=== PATIENT | female | born 1935 | race Hispanic/Latino ===

== ENCOUNTER 2018-01-08 11:07 | Emergency (ER) | payer MEDICARE, MEDICAID ==
[2018-01-08 11:07] VITALS: BMI 27.9
[2018-01-08] MEDS ORDERED: Sodium Chloride 0.9% 1,000 ML IV ONE (11:15)
[2018-01-08 11:51] LABS: BASO # 0.1 K/uL (0.0-0.2); BASO % 1.3 % (0.0-2.0); EOS # 0.2 K/uL (0.0-0.7); EOS % 3.1 % (0.0-4.0); HEMOGLOBIN 14.6 g/dL (12.0-16.0); LYMPH # 1.5 K/uL (1.0-4.3); LYMPH % 23.5 % (20.0-40.0); MEAN CELL VOLUME 96.6 fl (81.0-99.0); MEAN CORPUSCULAR HEMOGLOBIN 32.5 pg (27.0-31.0); MEAN CORPUSCULAR HGB CONC 33.6 g/dL (33.0-37.0); MEAN PLATELET VOLUME 8.1 fl (7.2-11.7); MONO # 0.8 K/uL (0.0-0.8); MONO % 13.2 % (0.0-10.0); NEUT # 3.6 K/uL (1.8-7.0); NEUT % 58.9 % (50.0-75.0); RBC 4.5 Mil/uL (3.80-5.20); RED CELL DISTRIBUTION WIDTH 16.2 % (11.5-14.5); WHITE BLOOD COUNT 6.2 K/uL (4.8-10.8)
[2018-01-08 12:01] LABS: INR 1.2; PROTHROMBIN TIME 13.8 Seconds (9.8-13.1)
[2018-01-08 12:04] LABS: PARTIAL THROMBOPLASTIN TIME 35.4 Seconds (25.6-37.1)
--- NOTE | 2018-01-08 12:09 | CT ---
Date of service: 01/08/2018 PROCEDURE: CT HEAD WITHOUT CONTRAST. HISTORY: R facial droop COMPARISON: None available. TECHNIQUE: Axial computed tomography images were obtained through the head/brain without intravenous contrast. Radiation dose: Total exam DLP = 827.94 mGy-cm. This CT exam was performed using one or more of the following dose reduction techniques: Automated exposure control, adjustment of the mA and/or kV according to patient size, and/or use of iterative reconstruction technique. FINDINGS: HEMORRHAGE: No intracranial hemorrhage. BRAIN: No mass effect or edema. Mild diffuse age-appropriate atrophy. Moderate patchy and confluent periventricular and deep white matter lucency consistent with microvascular ischemic change. No evidence of acute infarct. VENTRICLES: Unremarkable. No hydrocephalus. CALVARIUM: Unremarkable. PARANASAL SINUSES: Unremarkable as visualized. No significant inflammatory changes. MASTOID AIR CELLS: Unremarkable as visualized. No inflammatory changes. OTHER FINDINGS: None. IMPRESSION: No intracranial mass, hemorrhage or evidence of acute infarct. Age-appropriate involutional changes.
[2018-01-08 12:17] LABS: ALB/GLOB RATIO 1.1 (1.0-2.1); ALBUMIN 3.9 g/dL (3.5-5.0); ALT/SGPT 64 U/L (9-52); AST/SGOT 59 U/L (14-36); BLOOD UREA NITROGEN 14 mg/dl (7-17); CALCIUM 9.2 mg/dL (8.4-10.2); GFR NON-AFRICAN AMERICAN 53; HDL CHOLESTEROL 71 MG/DL (30-70)
[2018-01-08 12:29] LABS: LDL CHOLESTEROL 61 mg/dL (0-129)
--- NOTE | 2018-01-08 13:32 | RAD ---
Date of service: 01/08/2018 HISTORY: Code Stroke COMPARISON: No prior. FINDINGS: LUNGS: No active pulmonary disease. PLEURA: No significant pleural effusion identified, no pneumothorax apparent. CARDIOVASCULAR: Cardiomegaly. No evidence of acute, significant cardiovascular disease. OSSEOUS STRUCTURES: No significant abnormalities. VISUALIZED UPPER ABDOMEN: Normal. OTHER FINDINGS: None. IMPRESSION: No active disease.
[2018-01-08] MEDS ORDERED: Gadodiamide 287 MG/ML VIAL (15ML) IV ONE (13:41)
--- NOTE | 2018-01-08 13:41 | CARD ---
APPROVED REPORT Date of service: 01/08/2018 EKG Measurement Heart [id number] <Conclusion> Normal sinus rhythm Normal ECG
--- NOTE | 2018-01-08 15:08 | MRI ---
Date of service: 01/08/2018 PROCEDURE: MRI BRAIN WITH AND WITHOUT CONTRAST HISTORY: R facial palsy hx malignancy COMPARISON: Noncontrast head CT 01/08/2018. TECHNIQUE: Multiplanar, multisequence MR images of the brain were obtained with and without intravenous contrast enhancement. FINDINGS: HEMORRHAGE: None DWI: No evidence of an acute or early subacute infarction. BRAIN PARENCHYMA: There is a small linear flow void identified at the right cerebellar hemisphere inferiorly with the caput medusa component seen medially. 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 This is an occult AVM requiring no treatment. No suspicious signal changes are seen local to it that suggests current or prior ischemia. This is not usually seen associated with a DVA. Otherwise, limited chronic microangiopathy is appreciated in the periventricular white matter predominantly but also the subcortical left frontal and parietal lobes more so than at the right. Minimal similar changes may be present the inferior leanne but appear to spare the cerebellum. Diffuse cerebral atrophy appears mild once again. There is no mass effect. There is a near empty sella. ENHANCEMENT: DVA as discussed above. No additional abnormal intracranial enhancement. VENTRICLES: Unremarkable. No hydrocephalus. CRANIUM: Unremarkable. ORBITS: Grossly unremarkable. PARANASAL SINUSES/MASTOIDS: Clear VASCULAR SYSTEM: Skull base flow voids intact. OTHER FINDINGS: None . IMPRESSION: Mild age related neuro degenerative changes are identified which appear age-appropriate. No intracranial enhancing mass identified. 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 No acute intracranial findings.
--- NOTE | 2018-01-08 16:09 | RAD ---
Date of service: 01/08/2018 HISTORY: ro FB L chest for MRI all leads off COMPARISON: 01/08/2018 at 11:39 a.m. FINDINGS: LUNGS: No infiltrate. PLEURA: No significant pleural effusion identified, no pneumothorax apparent. CARDIOVASCULAR: Normal heart size. No congestive change. Right subclavian central venous catheter unchanged. OSSEOUS STRUCTURES: No significant abnormalities. VISUALIZED UPPER ABDOMEN: Normal. OTHER FINDINGS: None. IMPRESSION: No active disease.
--- NOTE | 2018-01-08 17:53 | ED PDOC ---
HPI:STROKE - Time Time: 11:13 - Historian Historian: Patient - Chief Complaint Chief Complaint: Facial droop - Onset Date: 01/07/18 Time: 12:00 - Timing Timing: Currently Symptomatic - Location Locate right:: Face - Severity of pain Maximum severity:: None Severity Current: None - TPA Positive for Contraindication: Yes Reason tPA is not being Administered: symptoms ongoing >4 hours and likely bells palsy - Notes: Notes:: 82yo female arrives w EMS per report her [employer] called 911 when she noticed facial droop. Patient c/o eye irritation and difficulty closing R eye but denies pain, numbness, change in speech, or vision, extremity weakness or numbness or headache. Reports history of several malignancies for which ?spread to brain in past (poor historian). Denies falls or trauma. NIHSS Stroke Scale - Date/Time Evaluation Performed Date Performed: 01/08/18 Time Performed: 11:20 When Was NIHSS Performed: Baseline - How Severe is the Stroke Level of Consciousness: 0=Alert LOC to Questions: 0=Both comments correct LOC to commands: 0=Obeys both correctly Best Gaze: 0=Normal Visual: 0=No visual loss Facial: 3=Complete unilateral paralysis Motor Arm - Left: 0=No drift Motor Arm - Right: 0=No drift Motor Leg - Left: 0=No drift Motor Leg - Right: 0=No drift Limb Ataxia: 0=Absent Sensory: 0=Normal Best Language: 0=No aphasia Dysarthia: 1=Mild to moderate slurring Extinction & Inattention (Neglect): 0=Normal, no object Score: 4 rTPA Inclusion/Exclusion - Refusal of Treatment Patient Refused Treatment: No - Inclusion Criteria for Altepase Patient is 18 years or Older: No The Clinical Diagnosis of Ischemic Stroke That is Causing a Potentially Disabling Neurological Deficit: No Time of Onset is Well Established to be Less Than 270 Minute Before Treatment Would Begin: No Risk/Benefit Discussed With Patient/Family Member Present: Yes - Exclusion Criteria for Altepase Uncontrolled Hypertension at Time of Treatment (Systolic BP above 185 or Diastolic BP above 110 mmHg): No - Warning to TPA With Conditions Following Conditions Weighed Against Anticipated Benefit: No Past Medical History Reviewed: Historical Data, Nursing Documentation, Vital Signs Vital Signs: Last Vital Signs Temp 98.6 F 01/08/18 16:59 Pulse 85 01/08/18 16:59 Resp 17 01/08/18 16:59 BP 157/84 H 01/08/18 16:59 Pulse Ox 98 01/08/18 16:59 - Medical History PMH: Anxiety, Arthritis (KNEE), Bipolar Disorder, Colonic Polyps, Diverticulitis, Gastritis, HTN, Hyperlipidemia, Malignancy (Colon, Breast (Right )), Osteoporosis Denies: Chronic Kidney Disease - Surgical History Surgical History: Cholecystectomy - Family History Family History: States: Unknown Family Hx - Immunization History Hx Tetanus Toxoid Vaccination: No Hx Influenza Vaccination: No Hx Pneumococcal Vaccination: No - Home Medications Home Medications: Ambulatory Orders Medication Instructions Recorded ALPRAZolam [Xanax] 1 mg PO Q8 PRN 01/08/18 Albuterol Sulfate [Ventolin Hfa] 2 puff IH Q6 PRN 01/08/18 Ferrous Sulfate [Feosol] 325 mg PO DAILY 01/08/18 Furosemide [Lasix] 20 mg PO DAILY 01/08/18 Latanoprost [Xalatan] 1 drop EACHEYE HS 01/08/18 Megestrol Acetate [Megace] 10 ml PO DAILY 01/08/18 Metoprolol Tartrate [Lopressor] 25 mg PO Q12 01/08/18 Pantoprazole Sodium [Protonix] 40 mg PO DAILY 01/08/18 Prednisone 50 mg PO DAILY #6 tab 01/08/18 valACYclovir [Valtrex] 500 mg PO BID #20 tab 01/08/18 - Allergies Allergies/Adverse Reactions: Allergies Allergy/AdvReac Type Severity Reaction Status Date / Time codeine Allergy REDNESS Verified 01/08/18 11:09 iodine Allergy SWELLING Verified 01/08/18 11:09 iohexol Allergy SWELLING Verified 01/08/18 11:09 NSAIDS (Non-Steroidal Allergy RASH Verified 01/08/18 11:09 Anti-Inflamma Sulfa (Sulfonamide Allergy RASH Verified 01/08/18 11:09 Antibiotics) Review of Systems ROS Statement: Except As Marked, All Systems Reviewed And Found Negative Constitutional: Negative for: Fever ENT: Negative for: Nose Discharge Cardiovascular: Negative for: Chest Pain Respiratory: Negative for: Cough Gastrointestinal: Negative for: Nausea Genitourinary Female: Negative for: Dysuria Skin: Negative for: Rash, Lesions Neurological: Positive for: Other (facial droop). Negative for: Weakness, Numbness - Laboratory Results Result Diagrams: 01/08/18 11:40 01/08/18 11:40 - ECG O2 Sat by Pulse Oximetry: 98 Medical Decision Making Medical Decision Making: labs, CT report and MRI brain report reviewed. Family told of vascular anomoly but given age and likely chronic, monitor outpatient per neurology. discussed results w neuro Dr Gurjit duong for discharge w prednisone and valtrex discussed results w son Sukhwinder in area and daughter estela in [place] importance of wetting eye and eye patch again discussed along w followup Discussed w son in ED and daughter on phone in [place], stressed importance of compliance w eye rewetting drops and patch use at night, along w medication compliance. Patient wants to go home. Ambulance service requested home for assistance as lives 4 floor walkup. Son states will check on her daily. Disposition - Clinical Impression Clinical Impression: Eller's palsy - Patient ED Disposition Is Patient to be Admitted: No Counseled Patient/Family Regarding: Studies Performed, Diagnosis, Need For Followup, Rx Given - Disposition Referrals: Natalie Aguayo MD [Medical Doctor] - Disposition: Routine/Home Disposition Time: 19:00 (awaiting ride home ambulance) Condition: STABLE Additional Instructions: WEAR EYE PATCH WHEN SLEEPING. USE EYE REWETTING DROPS 5X DAILY. RETURN TO ER FOR ANY CHANGE IN VISION. FAILURE TO WEAR EYE PATCH COULD RESULT IN DRYING OF THE EYE AND VISUAL LOSS. TAKE VALTREX AND PREDNISONE DIRECTED. FOLLOWUP WITH PMD AND NEUROLOGY DIRECTED. Prescriptions: Prednisone 50 mg PO DAILY #6 tab valACYclovir [Valtrex] 500 mg PO BID #20 tab Instructions: Eller's Palsy (DC) Forms: [employer] ([employer])
[2018-01-09 00:49] VITALS: BP 168/90; PULSE 88; RESP 18; TEMP 98.7; O2SAT 98
== END 2018-01-09 01:10 | disposition home or self-care (01) ==
LOC: H.ER 11:07
DX: G51.0 Bell's palsy (principal); Z86.59 Personal history of other mental and behavioral disorders; I10 Essential (primary) hypertension; E78.5 Hyperlipidemia, unspecified; Z85.038 Personal history of other malignant neoplasm of large intestine; Z79.899 Other long term (current) drug therapy; Z85.3 Personal history of malignant neoplasm of breast; M81.0 Age-related osteoporosis without current pathological fracture
CPT/HCPCS: 70450; 70553; 71045; 80053; 80061; 83036; 84484; 85025; 85610; 85730; 86850; 86900; 92526; 92610; 93005; 99285; A9579; G8996; G8997; J7030

== ENCOUNTER 2018-08-12 10:42 | Inpatient (IN) | payer MEDICARE, MEDICAID ==
[2018-08-12 10:42] VITALS: BMI 27.9
[2018-08-12 11:51] LABS: BASO % 1.4 % (0.0-2.0); EOS # 0.1 K/uL (0.0-0.7); HEMOGLOBIN 14.2 g/dL (12.0-16.0); LYMPH # 0.8 K/uL (1.0-4.3); LYMPH % 28.7 % (20.0-40.0); MEAN CELL VOLUME 97.3 fl (81.0-99.0); MEAN CORPUSCULAR HEMOGLOBIN 33.1 pg (27.0-31.0); MEAN PLATELET VOLUME 8.8 fl (7.2-11.7); MONO # 0.5 K/uL (0.0-0.8); NEUT # 1.3 K/uL (1.8-7.0); NEUT % 48.9 % (50.0-75.0); NRBC % 0.3 % (0.0-0.0); PLATELET COUNT 86 K/uL (130-400); RBC 4.31 Mil/uL (3.80-5.20); RED CELL DISTRIBUTION WIDTH 14.5 % (11.5-14.5); WHITE BLOOD COUNT 2.7 K/uL (4.8-10.8)
[2018-08-12 12:00] LABS: ALB/GLOB RATIO 1.2 (1.0-2.1); ALT/SGPT 57 U/L (9-52); AST/SGOT 71 U/L (14-36); BLOOD UREA NITROGEN 12 mg/dl (7-17); CALCIUM 8.8 mg/dL (8.4-10.2); GFR NON-AFRICAN AMERICAN > 60; INR 1.3; PROTHROMBIN TIME 14.6 Seconds (9.8-13.1)
[2018-08-12 12:03] LABS: PARTIAL THROMBOPLASTIN TIME 40.1 Seconds (25.6-37.1)
[2018-08-12 12:12] LABS: B-TYPE NATRIURETIC PEPTIDE 290 pg/ml (0-900)
[2018-08-12 12:39] LABS: BANDS 2 % (0-2); BASOPHIL 1 % (0-2); EOSINOPHIL 3 % (0-7); LYMPHOCYTE 21 % (20-50); MONOCYTE 15 % (0-10); NEUTROPHIL 57 % (42-75); REACTIVE LYMPHOCYTES 1 % (0-0); TOTAL CELLS COUNTED 100
[2018-08-12 12:41] LABS: PLATELET ESTIMATE DECREASED (NORMAL)
[2018-08-12 12:42] LABS: ANISOCYTOSIS SLIGHT
[2018-08-12 12:44] LABS: LARGE PLATELETS PRESENT; OVALOCYTES SLIGHT; POIKILOCYTOSIS SLIGHT
--- NOTE | 2018-08-12 12:48 | ED PDOC ---
HPI: General Adult Time Seen by Provider: 08/12/18 10:55 Chief Complaint (Nursing): Palpitations Chief Complaint (Provider): abd pain, palpitations History Per: Patient, EMS History/Exam Limitations: physical impairment Onset/Duration Of Symptoms: Gradual Current Symptoms Are (Timing): Still Present Additional Complaint(s): 83yo female arrives via ALS for rapid afib, unclear history or who called EMS, patient with mild confusion, likely baseline, known from prior admission. Poor historian. Pt notes L abdominal pain yesterday and frequent urination, denies fever, v omiting or diarrhea. Past Medical History Reviewed: Historical Data, Nursing Documentation, Vital Signs Vital Signs: Last Vital Signs Temp 98.5 F 08/12/18 10:43 Pulse 96 H 08/12/18 10:49 Resp 16 08/12/18 10:43 BP 135/71 08/12/18 10:43 Pulse Ox 94 L 08/12/18 10:43 Primary Care Provider: FAMILY PROVIDER,NO - Medical History PMH: Anxiety, Arthritis (KNEE), Bipolar Disorder, Colonic Polyps, Diverticulitis, Gastritis, HTN, Hyperlipidemia, Malignancy (Colon, Breast (Right)), Osteoporosis Denies: Chronic Kidney Disease - Surgical History Surgical History: Cholecystectomy - Family History Family History: States: Unknown Family Hx - Immunization History Hx Tetanus Toxoid Vaccination: No Hx Influenza Vaccination: No Hx Pneumococcal Vaccination: No - Home Medications Home Medications: Ambulatory Orders Medication Instructions Recorded ALPRAZolam [Xanax] 1 mg PO Q8 PRN 01/08/18 Latanoprost [Xalatan] 1 drop EACHEYE HS 01/08/18 Metoprolol Tartrate [Lopressor] 25 mg PO Q12 01/08/18 Pantoprazole Sodium [Protonix] 40 mg PO DAILY 01/08/18 Multivitamin [Multi-Vitamin Daily] 1 tab PO DAILY 08/12/18 - Allergies Allergies/Adverse Reactions: Allergies Allergy/AdvReac Type Severity Reaction Status Date / Time codeine Allergy REDNESS Verified 01/08/18 11:09 iodine Allergy SWELLING Verified 01/08/18 11:09 iohexol Allergy SWELLING Verified 01/08/18 11:09 NSAIDS (Non-Steroidal Allergy RASH Verified 01/08/18 11:09 Anti-Inflamma Sulfa (Sulfonamide Allergy RASH Verified 01/08/18 11:09 Antibiotics) Review of Systems ROS Statement: Except As Marked, All Systems Reviewed And Found Negative Constitutional: Negative for: Fever Eyes: Negative for: Vision Change ENT: Negative for: Ear Pain Cardiovascular: Positive for: Palpitations. Negative for: Chest Pain Gastrointestinal: Positive for: Abdominal Pain. Negative for: Diarrhea Genitourinary Female: Negative for: Dysuria Musculoskeletal: Negative for: Neck Pain Skin: Negative for: Rash Neurological: Negative for: Weakness Psych: Positive for: Anxiety Physical Exam - Reviewed Nursing Documentation Reviewed: Yes Vital Signs Reviewed: Yes - Physical Exam Appears: Positive for: Non-toxic Head Exam: Positive for: ATRAUMATIC, NORMAL INSPECTION, NORMOCEPHALIC Skin: Positive for: Normal Color, Warm, DRY Eye Exam: Positive for: EOMI, Normal appearance, PERRL ENT: Positive for: Normal ENT Inspection Neck: Positive for: Normal, Painless ROM Cardiovascular/Chest: Positive for: Tachycardia, Irregularly Irregular Respiratory: Positive for: CNT, Normal Breath Sounds Gastrointestinal/Abdominal: Positive for: Soft. Negative for: Tenderness, Guarding Back: Positive for: Normal Inspection Extremity: Positive for: Normal ROM Neurological/Psych: Positive for: Awake, Alert, Normal Tone. Negative for: Motor/Sensory Deficits - Laboratory Results Result Diagrams: 08/12/18 11:30 08/12/18 11:30 Lab Results: PT 14.6 Seconds (9.8-13.1) H 08/12/18 11:30 INR 1.3 08/12/18 11:30 APTT 40.1 Seconds (25.6-37.1) H 08/12/18 11:30 Troponin I 0.0190 ng/mL (0.00-0.120) 08/12/18 11:30 NT-Pro-B Natriuret Pep 290 pg/ml (0-900) 08/12/18 11:30 Total Bilirubin 1.8 mg/dl (0.2-1.3) H 08/12/18 11:30 AST 71 U/L (14-36) H D 08/12/18 11:30 ALT 57 U/L (9-52) H 08/12/18 11:30 Alkaline Phosphatase 193 U/L (38-126) H D 08/12/18 11:30 Total Protein 7.2 G/DL (6.3-8.2) 08/12/18 11:30 Albumin 4.0 g/dL (3.5-5.0) 08/12/18 11:30 Globulin 3.3 gm/dL (2.2-3.9) 08/12/18 11:30 Albumin/Globulin Ratio 1.2 (1.0-2.1) 08/12/18 11:30 - ECG O2 Sat by Pulse Oximetry: 94 Medical Decision Making Medical Decision Making: rapid afib on monitor, received cardizem 10mg via ALS which slowed rhythm, then reverted to RVR again, additional cardizem ordered but pt converted to sinus in the interim. Prior EKGs reviewed from 2018 sinus, prior charts reviewed briefly without mention of Afib. PMD Vic Aguayo Prior admission [facility] for abd pain. Seen ED [facility] fall 2017 for bells palsy. Disposition - Clinical Impression Clinical Impression: Atrial fibrillation with rapid ventricular response - Patient ED Disposition Is Patient to be Admitted: Yes - Disposition Disposition Time: 12:20 Condition: FAIR - Pt Status Changed To: Hospital Disposition Of: Inpatient - Admit Certification Admit to Inpatient:: After my assessment, the patient will require hospitalization for at least two midnights. This is because of the severity of symptoms shown, intensity of services needed, and/or the medical risk in this patient being treated as an outpatient.
--- NOTE | 2018-08-12 13:44 | CT ---
Date of service: 08/12/2018 PROCEDURE: CT Abdomen and Pelvis without intravenous contrast HISTORY: L abdominal pain x1 day COMPARISON: None. TECHNIQUE: Axial and reformatted coronal and sagittal CT images of the abdomen and pelvis were obtained without IV or oral contrast administration.. Contrast dose: 0 Radiation dose: Total exam DLP = 537.3 mGy-cm. This CT exam was performed using one or more of the following dose reduction techniques: Automated exposure control, adjustment of the mA and/or kV according to patient size, and/or use of iterative reconstruction technique. FINDINGS: LOWER THORAX: Cardiomegaly is noted. There is a small to moderate size hiatus hernia. There is a trace right pleural effusion noted. LIVER: Advanced cirrhotic changes noted in the liver. The liver is mildly enlarged. GALLBLADDER AND BILE DUCTS: Status post cholecystectomy. PANCREAS: Unremarkable. No gross lesion or ductal dilatation. SPLEEN: Splenomegaly is noted. ADRENALS: Unremarkable. No mass. KIDNEYS AND URETERS: Unremarkable. No hydronephrosis. No solid mass. VASCULATURE: Unremarkable. No aortic aneurysm. Foci of atherosclerotic calcification noted in the abdominal aorta and iliac arteries. BOWEL: No evidence of high-grade bowel obstruction. Colonic diverticulosis are noted without definite evidence of diverticulitis or perforation. APPENDIX: The appendix is not clearly visualized in this exam. PERITONEUM: There is fat stranding and mesenteric edema and density noted more prominent at the mid and lower right abdomen of uncertain etiology. Trace free fluid noted in the pelvis. No evidence of free air LYMPH NODES: . no evidence of significant retroperitoneal lymphadenopathy. BLADDER: Urinary bladder is mildly distended. REPRODUCTIVE: Status post hysterectomy. BONES: No acute fracture. OTHER FINDINGS: There is medially structure at the right lower abdomen likely represent surgical clips. IMPRESSION: No evidence of nephrolithiasis or hydronephrosis. Advanced cirrhosis associated with splenomegaly suggestive of portal hypertension. Mesenteric edema and stranding noted at the mid and lower right abdomen of uncertain etiology. Trace free fluid in the pelvis. Colonic diverticulosis without evidence of diverticulitis. Surgical clips seen at the right lower abdomen.
[2018-08-12 23:05] LABS: SQUAMOUS EPITHIAL 54 /hpf (0-5); URINE BACTERIA OCC (<OCC); URINE BILIRUBIN NEGATIVE (NEGATIVE); URINE BLOOD NEGATIVE (NEGATIVE); URINE CLARITY CLOUDY (Clear); URINE COLOR YELLOW (YELLOW); URINE GLUCOSE (UA) NEG (NEGATIVE); URINE LEUKOCYTE ESTERASE MOD Leu/uL (Negative); URINE PROTEIN NEGATIVE (NEGATIVE); URINE UROBILINOGEN 0.2-1.0 mg/dL (0.2-1.0)
[2018-08-13 06:20] LABS: HEMOGLOBIN 12.6 g/dL (12.0-16.0); MEAN CORPUSCULAR HEMOGLOBIN 33.4 pg (27.0-31.0); RBC 3.78 Mil/uL (3.80-5.20); RED CELL DISTRIBUTION WIDTH 14.8 % (11.5-14.5); WHITE BLOOD COUNT 3.5 K/uL (4.8-10.8)
[2018-08-13 06:28] LABS: BLOOD UREA NITROGEN 15 mg/dl (7-17); CALCIUM 8.6 mg/dL (8.4-10.2); GFR NON-AFRICAN AMERICAN > 60
[2018-08-13] MEDS ORDERED: Patient's Own Med (Multivitamin [Multi-Vitamin Daily] 1 TAB) PO SCH (09:00)
[2018-08-13] MEDS: Multivitamin With Minerals Tab PO SCH (09:50)
[2018-08-13] MEDS: Pantoprazole 40 mg EC Tab PO SCH (09:50)
--- NOTE | 2018-08-13 10:58 | CARD ---
APPROVED REPORT Date of service: 08/12/2018 EKG Measurement Heart [id number] <Conclusion> Atrial fibrillation with rapid ventricular response Abnormal ECG
--- NOTE | 2018-08-13 14:32 | CP.PCM.CON ---
History of Present Illness - History of Present Illness History of Present Illness: This 83-year-old female was brought to the emergency room by EMS who reported documenting atrial fibrillation and gave her Cardizem converting her back to sinus rhythm no tracings of this rhythm are available. The patient gives history of having suffered a stroke and her prior electrocardiograms recorded at [facility] show an episode of atrial flutter. The patient has not been anticoagulated. She is a hypertensive who says that she lives on the fourth floor apartment without an elevator. She gets physical therapy at home. The patient is an extremely poor history of urine and an attempt to reach her son by phone was unsuccessful. Physical examination shows an elderly lady who is awake and gives a rambling description of events surrounding her hospitalization. Review of her chart indicates a recent visit to the emergency room for Eller's palsy. She has had multiple hospitalizations at [facility] mostly for abdominal issues. Physical examination shows an elderly lady who is resting comfortably in bed. Has a heart rate of 80 bpm regular and telemetry shows steady sinus rhythm with rare isolated premature ventricular beats. Her blood pressure was 134/74 mmHg. Her jugular venous pressure was not elevated and there was no edema over her lower extremities. The pedal pulses were feeble but distinctly present. Her extremities were warm her nailbeds were pink. There was no central or peripheral cyanosis. There was no clubbing. The first and second heart sounds were normal. There was no murmur or gallop. There were no rales. Her electrocardiogram in the emergency room shows sinus rhythm with APCs. Telemetry shows sinus rhythm as well. Echocardiogram shows a preserved left ventricular systolic function Labs were noted. I have requested TSH to rule out the possibility of hyperthyroidism. Impression: Paroxysmal atrial fibrillation(?? No tracings are available to corroborate this.) The patient has been taking metoprolol for rate control and I have added anticoagulation to protect her against systemic emboli. The patient may be allowed to return home to be managed by her physician as an outpatient. 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, BREAST CANCER S/P CHEMO) Other/Comment: Breast cancer, colon cancer - INTEGUMENTARY Hx Dermatological Problems: No - MUSCULOSKELETAL/RHEUMATOLOGICAL Hx Arthritis: Yes (KNEE) Hx Falls: Yes Hx Osteoporosis: Yes - GASTROINTESTINAL Hx Diverticulitis: Yes Hx Gastritis: Yes - GENITOURINARY/GYNECOLOGICAL Hx Genitourinary Disorders: No - PSYCHIATRIC Hx Anxiety: Yes Hx Bipolar Disorder: Yes Hx Substance Use: No - SURGICAL HISTORY Hx Cholecystectomy: Yes - ANESTHESIA Hx Anesthesia: Yes Hx Anesthesia Reactions: No Hx Malignant Hyperthermia: No Meds Allergies/Adverse Reactions: Allergies Allergy/AdvReac Type Severity Reaction Status Date / Time codeine Allergy REDNESS Verified 01/08/18 11:09 iodine Allergy SWELLING Verified 01/08/18 11:09 iohexol Allergy SWELLING Verified 01/08/18 11:09 NSAIDS (Non-Steroidal Allergy RASH Verified 01/08/18 11:09 Anti-Inflamma Sulfa (Sulfonamide Allergy RASH Verified 01/08/18 11:09 Antibiotics) - Medications Medications: Current Medications Alprazolam (Xanax) 1 mg PO Q8 PRN PRN Reason: Anxiety Last Admin: 08/13/18 03:08 Dose: 1 mg Docusate Sodium (Colace) 100 mg PO BID [facility] Metoprolol Tartrate (Lopressor) 25 mg PO Q12 [facility] Last Admin: 08/13/18 09:50 Dose: 25 mg Multivitamins/Minerals (Therapeutic-M Tab) 1 tab PO DAILY [facility] Last Admin: 08/13/18 09:50 Dose: 1 tab Pantoprazole Sodium (Protonix Ec Tab) 40 mg PO DAILY [facility] Last Admin: 08/13/18 09:50 Dose: 40 mg Results - Vital Signs Recent Vital Signs: Last Vital Signs Temp 98.7 F 08/13/18 11:41 Pulse 79 08/13/18 11:41 Resp 18 08/13/18 11:41 BP 143/74 08/13/18 11:41 Pulse Ox 94 L 08/13/18 11:41 - Labs Result Diagrams: 08/13/18 04:15 08/13/18 04:15 Labs: Laboratory Results - last 24 hr 08/12/18 08/12/18 08/13/18 18:15 22:54 01:10 WBC RBC Hgb Hct MCV MCH MCHC RDW Plt Count Sodium Potassium Chloride Carbon Dioxide Anion Gap BUN Creatinine Est GFR ( Amer) Est GFR (Non-Af Amer) Random Glucose Calcium Troponin I 0.0410 0.0390 Urine Color Yellow Urine Clarity Cloudy Urine pH 7.0 Ur Specific [place] 1.008 Urine Protein Negative Urine Glucose (UA) Neg Urine Ketones Negative Urine Blood Negative Urine Nitrate Negative Urine Bilirubin Negative Urine Urobilinogen 0.2-1.0 Ur Leukocyte Esterase Mod Urine RBC (Auto) 1 Urine Microscopic WBC 29 H Ur Squamous Epith Cells 54 H Urine Bacteria Occ H 08/13/18 08/13/18 04:15 04:15 WBC 3.5 L RBC 3.78 L Hgb 12.6 Hct 37.1 MCV 98.0 MCH 33.4 H MCHC 34.0 RDW 14.8 H Plt Count 87 L Sodium 135 Potassium 3.8 Chloride 103 Carbon Dioxide 27 Anion Gap 9 L BUN 15 Creatinine 0.7 Est GFR ( Amer) > 60 Est GFR (Non-Af Amer) > 60 Random Glucose 84 Calcium 8.6 Troponin I Urine Color Urine Clarity Urine pH Ur Specific [place] Urine Protein Urine Glucose (UA) Urine Ketones Urine Blood Urine Nitrate Urine Bilirubin Urine Urobilinogen Ur Leukocyte Esterase Urine RBC (Auto) Urine Microscopic WBC Ur Squamous Epith Cells Urine Bacteria
--- NOTE | 2018-08-13 15:39 | CARD ---
APPROVED REPORT Date of service: 08/13/2018 EXAM: Two-dimensional and M-mode echocardiogram with Doppler and color Doppler. Other Information Quality : GoodRhythm : NSR INDICATION Atrial Fibrillation 2D DIMENSIONS IVSd1.15 (0.7-1.1cm)LVDd4.21 (3.9-5.9cm) LVOT Diameter2.08 (1.8-2.4cm)PWd1.32 (0.7-1.1cm) IVSs1.71 (0.8-1.2cm)LVDs2.21 (2.5-4.0cm) FS (%) 47.6 %PWs1.42 (0.8-1.2cm) M-Mode DIMENSIONS Left Atrium (MM)5.12 (2.5-4.0cm)IVSd1.44 (0.7-1.1cm) Aortic Root3.12 (2.2-3.7cm)LVDd4.97 (4.0-5.6cm) Aortic Cusp Exc.1.59 (1.5-2.0cm)PWd1.35 (0.7-1.1cm) IVSs1.53 cmFS (%) 28 % LVDs3.56 (2.0-3.8cm)PWs1.09 cm Aortic Valve AoV Peak Zgkczrwg120.4cm/sAoV VTI34.7cmAO Peak GR.11mmHg LVOT Peak Ocbwgekv190.1cm/sLVOT VTI25.02cmAO Mean GR.6mmHg GRIFFIN (VMAX)1.85nr0EMZ (VTI)1.38cm2 Mitral Valve MV E Wpicfxbh499.3cm/sMV DECEL [id number] A Lgmxosdf58.3cm/s MV GMN43vdK/A ratio2.2MVA (PHT)3.36cm2 TDI Lateral E' Peak V11.08cm/sMedial E' Peak V8.31cm/sE/Lateral E'10.6 E/Medial E'14.1 Tricuspid Valve TR Peak Lzgzzwoc942hk/sRAP MMOEHQTH25lmMdUU Peak Gr.21mmHg [id number] LEFT VENTRICLE The left ventricle is normal size. There is normal left ventricular wall thickness. Left ventricle systolic function is normal. LVEF is 65-70%. There is normal LV segmental wall motion. The left ventricular diastolic function is normal. RIGHT VENTRICLE The right ventricle is normal size. There is normal right ventricular wall thickness. The right ventricular systolic function is normal. ATRIA The left atrium is mildly dilated. The right atrium size is normal. AORTIC VALVE The aortic valve is normal in structure. No aortic regurgitation is present. There is no aortic valvular stenosis. MITRAL VALVE The mitral valve is normal in structure. There is no evidence of mitral valve prolapse. There is no mitral valve stenosis. Mitral regurgitation is mild. TRICUSPID VALVE The tricuspid valve is normal in structure. There is mild tricuspid regurgitation. Right ventricular systolic pressure is estimated at 32 mmHg. There is mild pulmonary hypertension. PULMONIC VALVE The pulmonary valve is normal in structure. There is no pulmonic valvular regurgitation. GREAT VESSELS The aortic root is normal in size. The IVC was not visualized. PERICARDIAL EFFUSION The pericardium appears normal. <Conclusion> The left ventricle is normal size. There is normal left ventricular wall thickness. There is normal LV segmental wall motion. Left ventricle systolic function is normal. LVEF is 65-70%. The left ventricular diastolic function is normal.
[2018-08-14] MEDS: Pantoprazole 40 mg EC Tab PO SCH (09:28)
[2018-08-14] MEDS: Multivitamin With Minerals Tab PO SCH (09:29)
[2018-08-15] MEDS: Pantoprazole 40 mg EC Tab PO SCH (09:57)
[2018-08-15] MEDS: Multivitamin With Minerals Tab PO SCH (09:57)
[2018-08-16] MEDS: Pantoprazole 40 mg EC Tab PO SCH (08:58)
[2018-08-16] MEDS: Multivitamin With Minerals Tab PO SCH (08:58)
--- NOTE | 2018-08-16 12:38 | CP.PCM.PN ---
Subjective - Date & Time of Evaluation Date of Evaluation: 08/14/18 Time of Evaluation: 11:00 - Subjective Subjective: patient seen and examined at bedside. Interim events noted patient states she feels unsafe for discharge due to no help at home (although family and home makers do provide support, she states they are rarely there) denies cp/sob/fever/chills. available diagnostic data reviewed Review of Systems All systems: reviewed and no additional remarkable complaints except mentioned above Objective Vital Signs Stable - Constitutional Appears: Non-toxic, No Acute Distress Head Exam: NORMAL INSPECTION Eye Exam: Normal appearance Respiratory Exam: NORMAL BREATHING PATTERN Cardiovascular Exam: +S1, +S2 GI & Abdominal Exam: Soft Neurological Exam: Alert, Awake Psychiatric exam: Normal Affect, Normal Mood, Depression Skin Exam: Normal Color, Warm Assessment and Plan monitor vitals monitor labs Cont meds Cont tx consultants appreciated input patient's afib is under control however due to potential for an unsafe discharge will start dispo planning for a CARLYLE rest of plan as ordered Assessment and Plan (1) Atrial fibrillation with rapid ventricular response Status: Acute
--- NOTE | 2018-08-16 12:40 | CP.PCM.PN ---
Subjective - Date & Time of Evaluation Date of Evaluation: 08/15/18 Time of Evaluation: 11:00 - Subjective Subjective: patient seen and examined at bedside. Interim events noted patient very tearful and depressed. denies cp/sob/fever/chills. available diagnostic data reviewed Review of Systems All systems: reviewed and no additional remarkable complaints except mentioned above Objective Vital Signs Stable - Constitutional Appears: Non-toxic, No Acute Distress Head Exam: NORMAL INSPECTION Eye Exam: Normal appearance Respiratory Exam: NORMAL BREATHING PATTERN Cardiovascular Exam: +S1, +S2 GI & Abdominal Exam: Soft Neurological Exam: Alert, Awake Psychiatric exam: Normal Affect, Normal Mood, Depression Skin Exam: Normal Color, Warm Assessment and Plan monitor vitals monitor labs Cont meds Cont tx consultants appreciated input patient's afib is under control dispo planning for a CARLYLE Psych consult requested rest of plan as ordered Assessment and Plan (1) Atrial fibrillation with rapid ventricular response Status: Acute (2) Depression Status: Acute
--- NOTE | 2018-08-16 12:40 | CP.PCM.PN ---
Subjective - Date & Time of Evaluation Date of Evaluation: 08/16/18 Time of Evaluation: 11:00 - Subjective Subjective: patient seen and examined at bedside. Interim events noted patient very tearful and depressed. denies cp/sob/fever/chills. available diagnostic data reviewed Review of Systems All systems: reviewed and no additional remarkable complaints except mentioned above Objective Vital Signs Stable - Constitutional Appears: Non-toxic, No Acute Distress Head Exam: NORMAL INSPECTION Eye Exam: Normal appearance Respiratory Exam: NORMAL BREATHING PATTERN Cardiovascular Exam: +S1, +S2 GI & Abdominal Exam: Soft Neurological Exam: Alert, Awake Psychiatric exam: Normal Affect, Normal Mood, Depression Skin Exam: Normal Color, Warm Assessment and Plan monitor vitals monitor labs Cont meds Cont tx consultants appreciated input patient's afib is under control dispo planning for a CARLYLE Psych consult pending rest of plan as ordered Objective - Vital Signs/Intake and Output Vital Signs (last 24 hours): Temp Pulse Resp BP Pulse Ox 97.9 F 79 20 128/78 96 08/16/18 08:06 08/16/18 08:56 08/16/18 08:06 08/16/18 08:56 08/16/18 08:06 - Medications Medications: Current Medications Alprazolam (Xanax) 1 mg PO Q8 PRN PRN Reason: Anxiety Last Admin: 08/16/18 01:14 Dose: 1 mg Apixaban (Eliquis) 5 mg PO BID [facility]; Protocol Last Admin: 08/16/18 08:57 Dose: 5 mg Docusate Sodium (Colace) 100 mg PO BID [facility] Last Admin: 08/16/18 08:57 Dose: 100 mg Metoprolol Tartrate (Lopressor) 25 mg PO Q12 [facility] Last Admin: 08/16/18 08:56 Dose: 25 mg Multivitamins/Minerals (Therapeutic-M Tab) 1 tab PO DAILY [facility] Last Admin: 08/16/18 08:58 Dose: 1 tab Pantoprazole Sodium (Protonix Ec Tab) 40 mg PO DAILY [facility] Last Admin: 08/16/18 08:58 Dose: 40 mg - Labs Labs: 08/13/18 04:15 08/13/18 04:15 PT 14.6 Seconds (9.8-13.1) H 08/12/18 11:30 INR 1.3 08/12/18 11:30 APTT 40.1 Seconds (25.6-37.1) H 08/12/18 11:30 Assessment and Plan (1) Depression Status: Acute (2) Atrial fibrillation with rapid ventricular response Status: Acute
[2018-08-17] MEDS: Pantoprazole 40 mg EC Tab PO SCH (08:21)
[2018-08-17] MEDS: Multivitamin With Minerals Tab PO SCH (08:21)
--- NOTE | 2018-08-17 08:49 | CP.PCM.HP ---
History of Present Illness - History of Present Illness History of Present Illness: This is an 83 y/o female who lives alone in her [address] floor apartment was admitted last night for palpitations at home and was noted by EMT to have atrial flutter. She was given IV cardizem and responded and rhythm converted to NSR. She lives alone and receives homemaker servcies. She claims to have difficulty with ambulation. Present on Admission - Present on Admission Any Indicators Present on Admission: No History of DVT/PE: No History of Uncontrolled Diabetes: No Urinary Catheter: No Decubitus Ulcer Present: No Review of Systems - Cardiovascular Cardiovascular: Lightheadedness Past Patient History - Infectious Disease Hx of Infectious Diseases: None - Past Medical History & Family History Past Medical History?: Yes - Past Social History Smoking Status: Never Smoked - CARDIAC Hx Hypertension: Yes - NEUROLOGICAL Hx Neurological Disorder: No - HEENT Hx HEENT Problems: Yes Hx Glaucoma: Yes Other/Comment: wears glasses, hard of hearing - RENAL Hx Chronic Kidney Disease: No - ENDOCRINE/METABOLIC Hx Endocrine Disorders: No - HEMATOLOGICAL/ONCOLOGICAL Hx Blood Disorders: Yes Hx Cancer: Yes (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, BREAST CANCER S/P CHEMO) Other/Comment: Breast cancer, colon cancer - INTEGUMENTARY Hx Dermatological Problems: No - MUSCULOSKELETAL/RHEUMATOLOGICAL Hx Arthritis: Yes (KNEE) Hx Falls: Yes Hx Osteoporosis: Yes - GASTROINTESTINAL Hx Diverticulitis: Yes Hx Gastritis: Yes - GENITOURINARY/GYNECOLOGICAL Hx Genitourinary Disorders: No - PSYCHIATRIC Hx Anxiety: Yes Hx Bipolar Disorder: Yes Hx Substance Use: No - SURGICAL HISTORY Hx Cholecystectomy: Yes - ANESTHESIA Hx Anesthesia: Yes Hx Anesthesia Reactions: No Hx Malignant Hyperthermia: No Meds Allergies/Adverse Reactions: Allergies Allergy/AdvReac Type Severity Reaction Status Date / Time codeine Allergy REDNESS Verified 01/08/18 11:09 iohexol Allergy SWELLING Verified 01/08/18 11:09 NSAIDS (Non-Steroidal Allergy RASH Verified 01/08/18 11:09 Anti-Inflamma Sulfa (Sulfonamide Allergy RASH Verified 01/08/18 11:09 Antibiotics) Physical Exam - Head Exam Head Exam: NORMAL INSPECTION - Eye Exam Eye Exam: Normal appearance - ENT Exam ENT Exam: Mucous Membranes Moist - Respiratory Exam Respiratory Exam: Clear to Auscultation Bilateral - Cardiovascular Exam Cardiovascular Exam: REGULAR RHYTHM - GI/Abdominal Exam GI & Abdominal Exam: Normal Bowel Sounds Results - Vital Signs Recent Vital Signs: Last Vital Signs Temp 97.9 F 08/17/18 07:51 Pulse 69 08/17/18 08:20 Resp 20 08/17/18 07:51 BP 134/70 08/17/18 08:20 Pulse Ox 97 08/17/18 07:51 - Labs Result Diagrams: 08/13/18 04:15 08/13/18 04:15 Assessment & Plan (1) Atrial fibrillation with rapid ventricular response Status: Acute (2) Back pain Status: Acute (3) Gait difficulty Status: Acute - Assessment and Plan (Free Text) Plan: telemetry Psych eval start Phys therapy Metooprolol anticoagulation Xanax
--- NOTE | 2018-08-17 11:09 | CP.PCM.PN ---
Subjective - Date & Time of Evaluation Date of Evaluation: 08/17/18 Time of Evaluation: 11:08 - Subjective Subjective: Patient remains stable Has no chest pain or SOB Cannot ambulate well. Objective - Vital Signs/Intake and Output Vital Signs (last 24 hours): Temp Pulse Resp BP Pulse Ox 97.9 F 69 20 134/70 97 08/17/18 07:51 08/17/18 08:20 08/17/18 07:51 08/17/18 08:20 08/17/18 07:51 - Medications Medications: Current Medications Alprazolam (Xanax) 1 mg PO Q8 PRN PRN Reason: Anxiety Last Admin: 08/16/18 21:17 Dose: 1 mg Apixaban (Eliquis) 5 mg PO BID [facility]; Protocol Last Admin: 08/17/18 08:21 Dose: 5 mg Docusate Sodium (Colace) 100 mg PO BID [facility] Last Admin: 08/17/18 08:21 Dose: 100 mg Metoprolol Tartrate (Lopressor) 25 mg PO Q12 [facility] Last Admin: 08/17/18 08:20 Dose: 25 mg Multivitamins/Minerals (Therapeutic-M Tab) 1 tab PO DAILY [facility] Last Admin: 08/17/18 08:21 Dose: 1 tab Pantoprazole Sodium (Protonix Ec Tab) 40 mg PO DAILY [facility] Last Admin: 08/17/18 08:21 Dose: 40 mg - Labs Labs: 08/13/18 04:15 08/13/18 04:15 PT 14.6 Seconds (9.8-13.1) H 08/12/18 11:30 INR 1.3 08/12/18 11:30 APTT 40.1 Seconds (25.6-37.1) H 08/12/18 11:30 - Head Exam Head Exam: NORMAL INSPECTION - Eye Exam Eye Exam: Normal appearance - ENT Exam ENT Exam: Mucous Membranes Moist - Respiratory Exam Respiratory Exam: Clear to Ausculation Bilateral - Cardiovascular Exam Cardiovascular Exam: REGULAR RHYTHM - GI/Abdominal Exam GI & Abdominal Exam: Normal Bowel Sounds Assessment and Plan (1) Atrial fibrillation with rapid ventricular response Status: Acute (2) Anxiety Status: Acute (3) Chronic leg pain Status: Acute - Assessment and Plan (Free Text) Plan: Cont meds Con ttx Cont PT rehab eval
--- NOTE | 2018-08-17 13:01 | CP.PCM.CON ---
History of Present Illness - History of Present Illness History of Present Illness: consult requested for depression This is an 83 y/o female who lives alone was admitted for palpitations pt has been noted by staff to be depressed, on evaluation pt reported that she has been treated for anxiety and depression long time ago / unable to specify after the loss of one of her sons, treatment was on outpatient basis by her PMD pt currently is not in psychiatric treatment reported feeling down at times and anxious due to her limited mobility , reported episodes of increased anxiety, denied changes in sleep or appetite denied suicidal or homicidal ideation denied perceptual disturbances alert awake oriented to person and place Past Patient History - Infectious Disease Hx of Infectious Diseases: None - Past Medical History & Family History Past Medical History?: Yes - Past Social History Smoking Status: Never Smoked - CARDIAC Hx Hypertension: Yes - NEUROLOGICAL Hx Neurological Disorder: No - HEENT Hx HEENT Problems: Yes Hx Glaucoma: Yes Other/Comment: wears glasses, hard of hearing - RENAL Hx Chronic Kidney Disease: No - ENDOCRINE/METABOLIC Hx Endocrine Disorders: No - HEMATOLOGICAL/ONCOLOGICAL Hx Blood Disorders: Yes Hx Cancer: Yes (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, BREAST CANCER S/P CHEMO) Other/Comment: Breast cancer, colon cancer - INTEGUMENTARY Hx Dermatological Problems: No - MUSCULOSKELETAL/RHEUMATOLOGICAL Hx Arthritis: Yes (KNEE) Hx Falls: Yes Hx Osteoporosis: Yes - GASTROINTESTINAL Hx Diverticulitis: Yes Hx Gastritis: Yes - GENITOURINARY/GYNECOLOGICAL Hx Genitourinary Disorders: No - PSYCHIATRIC Hx Anxiety: Yes Hx Bipolar Disorder: Yes Hx Substance Use: No - SURGICAL HISTORY Hx Cholecystectomy: Yes - ANESTHESIA Hx Anesthesia: Yes Hx Anesthesia Reactions: No Hx Malignant Hyperthermia: No Meds Allergies/Adverse Reactions: Allergies Allergy/AdvReac Type Severity Reaction Status Date / Time codeine Allergy REDNESS Verified 01/08/18 11:09 iohexol Allergy SWELLING Verified 01/08/18 11:09 NSAIDS (Non-Steroidal Allergy RASH Verified 01/08/18 11:09 Anti-Inflamma Sulfa (Sulfonamide Allergy RASH Verified 01/08/18 11:09 Antibiotics) - Medications Medications: Current Medications Alprazolam (Xanax) 1 mg PO Q8 PRN PRN Reason: Anxiety Last Admin: 08/16/18 21:17 Dose: 1 mg Apixaban (Eliquis) 5 mg PO BID [facility]; Protocol Last Admin: 08/17/18 08:21 Dose: 5 mg Docusate Sodium (Colace) 100 mg PO BID [facility] Last Admin: 08/17/18 08:21 Dose: 100 mg Metoprolol Tartrate (Lopressor) 25 mg PO Q12 [facility] Last Admin: 08/17/18 08:20 Dose: 25 mg Multivitamins/Minerals (Therapeutic-M Tab) 1 tab PO DAILY [facility] Last Admin: 08/17/18 08:21 Dose: 1 tab Pantoprazole Sodium (Protonix Ec Tab) 40 mg PO DAILY [facility] Last Admin: 08/17/18 08:21 Dose: 40 mg Results - Vital Signs Recent Vital Signs: Last Vital Signs Temp 97.9 F 08/17/18 07:51 Pulse 69 08/17/18 08:20 Resp 20 08/17/18 07:51 BP 134/70 08/17/18 08:20 Pulse Ox 97 08/17/18 07:51 - Labs Result Diagrams: 08/13/18 04:15 08/13/18 04:15 Assessment & Plan - Assessment and Plan (Free Text) Assessment: mood disorder due to medical condition with depressive features Plan: recommend starting zoloft 12.5 mg daily
[2018-08-18 08:27] VITALS: PULSE 67; RESP 20; TEMP 98; O2SAT 97
[2018-08-18 09:15] VITALS: BP 127/75
[2018-08-18] MEDS: Pantoprazole 40 mg EC Tab PO SCH (09:15)
[2018-08-18] MEDS: Multivitamin With Minerals Tab PO SCH (09:15)
--- NOTE | 2018-08-19 00:33 | CP.PCM.DIS ---
Provider - Provider Date of Admission: 08/14/18 18:20 Attending physician: Yonatan Felder MD Consults: 08/12/18 15:43 Cardiology Consult Routine Comment: Consulting Provider: Elian Marino V Consulting Physician: Elian Marino V Reason for Consult: Atrial fibrillation w/ RVR 08/14/18 15:27 Social Work Referral Routine Comment: see above. Physician Instructions: eval for safe dc plan Reason For Exam: was for dc but said she was afraid to go home 08/16/18 10:00 Psychiatry Consult Routine Comment: Consulting Provider: Charles Allison Consulting Physician: Charles Allison Reason for Consult: depression Diagnosis - Discharge Diagnosis (1) Atrial fibrillation with rapid ventricular response Status: Acute (2) Back pain Status: Acute (3) Gait difficulty Status: Acute Hospital Course - Lab Results Lab Results: Micro Results 08/12/18 22:54 Urine Random Urine Culture - Final <10,000 CFU/ML. MULTIPLE SPECIES. PROBABLE CONTAMINATION. Most Recent Lab Values WBC 3.5 K/uL (4.8-10.8) L 08/13/18 04:15 RBC 3.78 Mil/uL (3.80-5.20) L 08/13/18 04:15 Hgb 12.6 g/dL (12.0-16.0) 08/13/18 04:15 Hct 37.1 % (34.0-47.0) 08/13/18 04:15 MCV 98.0 fl (81.0-99.0) 08/13/18 04:15 MCH 33.4 pg (27.0-31.0) H 08/13/18 04:15 MCHC 34.0 g/dL (33.0-37.0) 08/13/18 04:15 RDW 14.8 % (11.5-14.5) H 08/13/18 04:15 Plt Count 87 K/uL (130-400) L 08/13/18 04:15 MPV 8.8 fl (7.2-11.7) 08/12/18 11:30 Neut % (Auto) 48.9 % (50.0-75.0) L 08/12/18 11:30 Lymph % (Auto) 28.7 % (20.0-40.0) 08/12/18 11:30 O'Brien % (Auto) 18.0 % (0.0-10.0) H 08/12/18 11:30 Eos % (Auto) 3.0 % (0.0-4.0) 08/12/18 11:30 Baso % (Auto) 1.4 % (0.0-2.0) 08/12/18 11:30 Neut # (Auto) 1.3 K/uL (1.8-7.0) L 08/12/18 11:30 Lymph # (Auto) 0.8 K/uL (1.0-4.3) L 08/12/18 11:30 O'Brien # (Auto) 0.5 K/uL (0.0-0.8) 08/12/18 11:30 Eos # (Auto) 0.1 K/uL (0.0-0.7) 08/12/18 11:30 Baso # (Auto) 0.0 K/uL (0.0-0.2) 08/12/18 11:30 Neutrophils % (Manual) 57 % (42-75) 08/12/18 11:30 Band Neutrophils % 2 % (0-2) 08/12/18 11:30 Lymphocytes % (Manual) 21 % (20-50) 08/12/18 11:30 Reactive Lymphs % 1 % (0-0) H 08/12/18 11:30 Monocytes % (Manual) 15 % (0-10) H 08/12/18 11:30 Eosinophils % (Manual) 3 % (0-7) 08/12/18 11:30 Basophils % (Manual) 1 % (0-2) 08/12/18 11:30 Platelet Estimate Decreased (NORMAL) L 08/12/18 11:30 Large Platelets Present 08/12/18 11:30 Poikilocytosis (manual Slight 08/12/18 11:30 Anisocytosis (manual) Slight 08/12/18 11:30 Ovalocytes Slight 08/12/18 11:30 PT 14.6 Seconds (9.8-13.1) H 08/12/18 11:30 INR 1.3 08/12/18 11:30 APTT 40.1 Seconds (25.6-37.1) H 08/12/18 11:30 Sodium 135 mmol/l (132-148) 08/13/18 04:15 Potassium 3.8 MMOL/L (3.6-5.0) 08/13/18 04:15 Chloride 103 mmol/L (98-107) 08/13/18 04:15 Carbon Dioxide 27 mmol/L (22-30) 08/13/18 04:15 Anion Gap 9 (10-20) L 08/13/18 04:15 BUN 15 mg/dl (7-17) 08/13/18 04:15 Creatinine 0.7 mg/dl (0.7-1.2) 08/13/18 04:15 Est GFR ( Amer) > 60 08/13/18 04:15 Est GFR (Non-Af Amer) > 60 08/13/18 04:15 Random Glucose 84 mg/dL (65-105) 08/13/18 04:15 Calcium 8.6 mg/dL (8.4-10.2) 08/13/18 04:15 Total Bilirubin 1.8 mg/dl (0.2-1.3) H 08/12/18 11:30 AST 71 U/L (14-36) H D 08/12/18 11:30 ALT 57 U/L (9-52) H 08/12/18 11:30 Alkaline Phosphatase 193 U/L (38-126) H D 08/12/18 11:30 Troponin I 0.0390 ng/mL (0.00-0.120) 08/13/18 01:10 NT-Pro-B Natriuret Pep 290 pg/ml (0-900) 08/12/18 11:30 Total Protein 7.2 G/DL (6.3-8.2) 08/12/18 11:30 Albumin 4.0 g/dL (3.5-5.0) 08/12/18 11:30 Globulin 3.3 gm/dL (2.2-3.9) 08/12/18 11:30 Albumin/Globulin Ratio 1.2 (1.0-2.1) 08/12/18 11:30 TSH 3rd Generation 2.37 mIU/ML (0.46-4.68) 08/13/18 14:45 Urine Color Yellow (YELLOW) 08/12/18 22:54 Urine Clarity Cloudy (Clear) 08/12/18 22:54 Urine pH 7.0 (5.0-8.0) 08/12/18 22:54 Ur Specific [place] 1.008 (1.003-1.030) 08/12/18 22:54 Urine Protein Negative mg/dL (NEGATIVE) 08/12/18 22:54 Urine Glucose (UA) Neg mg/dL (NEGATIVE) 08/12/18 22:54 Urine Ketones Negative mg/dL (NEGATIVE) 08/12/18 22:54 Urine Blood Negative (NEGATIVE) 08/12/18 22:54 Urine Nitrate Negative (NEGATIVE) 08/12/18 22:54 Urine Bilirubin Negative (NEGATIVE) 08/12/18 22:54 Urine Urobilinogen 0.2-1.0 mg/dL (0.2-1.0) 08/12/18 22:54 Ur Leukocyte Esterase Mod Arpit/uL (Negative) 08/12/18 22:54 Urine RBC (Auto) 1 /hpf (0-3) 08/12/18 22:54 Urine Microscopic WBC 29 /hpf (0-5) H 08/12/18 22:54 Ur Squamous Epith Cells 54 /hpf (0-5) H 08/12/18 22:54 Urine Bacteria Occ (<OCC) H 08/12/18 22:54 - Hospital Course Hospital Course: This is an 83 y/o female admitted for atrial fibrillation. Discharge Exam - Head Exam Head Exam: NORMAL INSPECTION Discharge Plan - Discharge Medications Prescriptions: Apixaban [Eliquis] 5 mg PO BID #60 tablet - Follow Up Plan Condition: FAIR Disposition: HOME/ ROUTINE Instructions: Atrial Fibrillation (DC) Additional Instructions: follow up with in 1 week [facility] visiting nurse [phone] Referrals: Charles Allison MD [Medical Doctor] - Yonatan Felder MD [Medical Doctor] - Natalie Aguayo MD [Family Provider] -
--- NOTE | 2018-08-25 12:18 | PQF ---
Yonatan Felder MD PROVIDER RESPONSE TEXT: Chronic Pancytopenia REVIEWER QUERY TEXT: Clarification of Clinical Diagnosis Please clarify if there is an associated diagnosis(s) to go along with the following clinical labs: WBC:2.7->3.5 Plt.: 86->87--Total Bili:1.8 AST: 71 ALT: 57 Alkaline Phos: 193 OR: Disagree OR: Other explanation of clinical finding The patient's Clinical Indicators include: -- Query created by: Alicia Hutchison on 08/16/2018 08:06 AM AMADO
--- NOTE | 2018-08-25 18:01 | PQF ---
PROVIDER RESPONSE TEXT: PANCYTOPENIA ELEVATED LFTS REVIEWER QUERY TEXT: Clarification of Clinical Diagnostic Findings Please clarify if there is an associated diagnosis(s) to go along with the following clinical labs: W BC:2.7->3.5 Plt.: 86->87--Total Bili:1.8 AST: 71 ALT: 57 Alkaline Phos: 193 OR: Disagree OR: Other explanation of clinical finding The patient's Clinical Indicators include: -- Query created by: Alicia Hutchison on 08/16/2018 8:06 AM Electronically signed by: Yonatan Felder 08/25/2018 5:58 PM
== END 2018-08-18 09:43 | disposition home health service (06) | DRG 309 ==
LOC: H.ER 10:42 → H.ERHOLD 12:29 → INTOOBSV 12:29 → H.TEL 14:19 → H.MEDSURG1 08-14 15:23 → OBSVTOIN 08-14 18:20
PROVIDERS: ADMIT Family Medicine; ATTEND Family Medicine
DX: I48.0 Paroxysmal atrial fibrillation (principal); D61.818 Other pancytopenia; I48.92 Unspecified atrial flutter; G89.29 Other chronic pain; F06.31 Mood disorder due to known physiological condition with depressive features; I49.3 Ventricular premature depolarization; F41.9 Anxiety disorder, unspecified; M17.10 Unilateral primary osteoarthritis, unspecified knee; R26.89 Other abnormalities of gait and mobility; E78.5 Hyperlipidemia, unspecified; I10 Essential (primary) hypertension; M81.0 Age-related osteoporosis without current pathological fracture; K29.70 Gastritis, unspecified, without bleeding; Z85.72 Personal history of non-Hodgkin lymphomas; Z85.3 Personal history of malignant neoplasm of breast; Z85.038 Personal history of other malignant neoplasm of large intestine; Z92.21 Personal history of antineoplastic chemotherapy; Z86.73 Personal history of transient ischemic attack (TIA), and cerebral infarction without residual deficits; Z88.6 Allergy status to analgesic agent; Z88.8 Allergy status to other drugs, medicaments and biological substances